=== PATIENT | female | born 1990 ===

== ENCOUNTER 2019-01-15 11:29 | Outpatient (REF) | payer BC, SELFPAY ==
--- NOTE | 2019-01-15 09:30 | PAPFT_PTH ---
PATIENT: ANNITA GRIMM LOC: [id number] U#:[id number] AGE/SX: 28/F ROOM: RE01/15/[address]: Mary Stark : 1990 BED: DIS: 01/15/2019 SPEC #: [id number] RECD: 01/16/19 12:46 STATUS: TANISHA REQ #: [id number] ABDI: 01/15/19 09:[address]: Mary Stark DEPT: [facility] Cytology RECD BY: Susan Milton Tissues: 1 - CX/ENDOCX FOR PAP SMEARS Procedures: PAP THIN PREP/[facility] Screening HPV DNA PROBE Comments: [id number]
== END 2019-01-15 11:49 ==
LOC: NCHCN 11:29
PROVIDERS: PCP Nurse Practitioner; Visit Provider Nurse Practitioner
DX: Z00.00 Encounter for general adult medical examination without abnormal findings (principal); Z12.4 Encounter for screening for malignant neoplasm of cervix; Z01.419 Encounter for gynecological examination (general) (routine) without abnormal findings
CPT/HCPCS: 88142; 87624